=== PATIENT | male | born 1975 | race Caucasian/White ===

== ENCOUNTER 2020-11-10 12:47 | Emergency (ER) | payer OTHER ==
--- NOTE | 2020-11-10 13:02 | ED Physician Documentation ---
PD HPI SKIN - Stated complaint Stated Complaint: BAT EXPOSURE - History obtained from History obtained from: Patient - History of Present Illness Timing - onset: Last night (The patient and his were awakened by flapping noise and they noticed a bat flying around the living room and bedroom portion of the loft in their house. The went into the bathroom. They had their kids closed their doors. The patient opened the door and the bat flew out. No contact.) Timing - duration: Minutes Location: Other (no obvious direct contact with the bat.) Quality / character: Other (The patient's was looking online about information for bat exposure and the issue of potential rabies exposure provoked them to come here for evaluation and discussion.) Similar symptoms before: Has not had sx before Recently seen: Not recently seen Review of Systems Skin: denies: Abrasion (s), Laceration (s) PD PAST MEDICAL HISTORY - Past Medical History Past Medical History: No - Allergies Allergies/Adverse Reactions: Allergies Allergy/AdvReac Type Severity Reaction Status Date / Time No Known Drug Allergies Allergy Verified 11/10/20 13:05 PD ED PE NORMAL - Vitals Vital signs reviewed: Yes - General General: Alert and oriented X 3, No acute distress, Well developed/nourished - Derm Derm: Normal color, Warm and dry Results - Vitals Vitals: Vital Signs - 24 hr 11/10/20 13:03 Temperature 37.2 C Heart Rate 72 Respiratory 14 Rate Blood Pressure 127/61 O2 Saturation 99 PD MEDICAL DECISION MAKING - ED course Complexity details: considered differential, d/w patient ED course: The patient did not have any direct contact with the bat. Other family members were well remote in other rooms or not in direct area. Seems a very low incidence chance of rabies exposure. I discussed with the parents about the low risk probability and the overall prevalence of 1% in wild bats and up to 6% in those brought in for testing in the [place] area. We discussed the series of immunoglobulin and vaccines required for treatment. Shared decision amongst them is to not do rabies treatment. Departure - Departure Disposition: 01 Home, Self Care Clinical Impression: Exposure to bat without known bite Condition: Stable Record reviewed to determine appropriate education?: Yes Comments: This sounds very low risk exposure for the rabies virus. I did just look up the prevalence of rabies in wild bats in [place] and it's 1% of bats in the wild with up to 6% of those submitted for testing have rabies virus (so a skewed sampling). So low risk among normal acting bats. The main route for infection is by bites. Discharge Date/Time: 11/10/20 13:56
[2020-11-10 13:05] VITALS: BP 127/61
== END 2020-11-10 13:56 | disposition home or self-care (01) ==
LOC: ED 12:47
DX: Z20.3 Contact with and (suspected) exposure to rabies (principal)
CPT/HCPCS: 99281

== ENCOUNTER 2020-11-13 12:45 | Emergency (ER) | payer OTHER | END 2020-11-13 13:00 | disposition left against medical advice (07) | LOC: ED 12:45 | DX: Z53.21 Procedure and treatment not carried out due to patient leaving prior to being seen by health care provider (principal) ==